=== PATIENT | male | born 1960 | race Caucasian/White ===

== ENCOUNTER 2022-05-24 17:44 | Emergency (ER) | payer SELFPAY ==
[2022-05-24] MEDS ORDERED: FUROSEMIDE 40 MG/4 ML VIAL IVP STA (18:07)
--- NOTE | 2022-05-24 18:08 | ED Physician Documentation ---
PD HPI DYSPNEA - Stated complaint Stated Complaint: SOA,SWOLLEN FEET - Chief complaint Chief Complaint: Cardiac - History obtained from History obtained from: Patient - Additional information Additional information: He was diagnosed with congestive heart failure in November. He was given prescriptions but has not been noncompliant. He has developed increasing pedal edema over the last couple of months and over the last couple of weeks has developed shortness of breath. He denies chest pain. He smokes but does not use drugs or alcohol. Review of Systems Constitutional: denies: Fatigue Cardiac: reports: Pedal edema. denies: Chest pain / pressure, Palpitations, Calf pain Respiratory: reports: Dyspnea. denies: Cough PD PAST MEDICAL HISTORY - Present Medications Home Medications: Ambulatory Orders Medication Instructions Recorded Confirmed Furosemide [Lasix] 20 mg PO DAILY #30 tablet 05/24/22 Lisinopril [Zestril] 10 mg PO DAILY #30 tablet 05/24/22 Potassium Chloride 10 meq PO DAILY #30 05/24/22 - Allergies Allergies/Adverse Reactions: Allergies Allergy/AdvReac Type Severity Reaction Status Date / Time acetaminophen [From Percocet] Allergy Rash Verified 05/24/22 17:57 oxycodone [From Percocet] Allergy Rash Verified 05/24/22 17:57 PD ED PE NORMAL - Vitals Vital signs reviewed: Yes - General General: Alert and oriented X 3, No acute distress - Cardiac Cardiac: RRR, No murmur - Respiratory Respiratory: No respiratory distress, Clear bilaterally - Abdomen Abdomen: Non tender - Extremities Extremities: Other (3+ pitting pedal edema, no cellulitis or asymmetry) - Neuro Neuro: Alert and oriented X 3, Normal speech Results - Vitals Vitals: Vital Signs - 24 hr 05/24/22 05/24/22 05/24/22 17:50 18:32 19:20 Temperature 36.8 C 36.8 C Heart Rate 105 H 97 88 Respiratory 18 19 18 Rate Blood Pressure 173/109 H 160/99 H O2 Saturation 97 97 97 Oxygen O2 Source Room air - EKG (time done) 1813 Rate: Rate (enter#) (98) Rhythm: NSR, LAE [place]: Normal Intervals: Prolonged QT (borderline) QRS: LVH Ischemia: Normal ST segments - Labs Labs: Laboratory Tests 05/24/22 05/24/22 05/24/22 18:13 18:13 18:13 WBC 7.6 RBC 4.70 Hgb 13.9 L Hct 41.6 L MCV 88.5 MCH 29.6 MCHC 33.4 RDW 13.6 Plt Count 259 MPV 10.9 Neut # (Auto) 4.8 Lymph # (Auto) 1.6 [place] # (Auto) 0.4 Eos # (Auto) 0.6 Baso # (Auto) 0.1 Absolute Nucleated RBC 0.00 Nucleated RBC % 0.0 Sodium 134 L Potassium 3.8 Chloride 100 L Carbon Dioxide 24 Anion Gap 10.0 BUN 13 Creatinine 1.3 H Estimated GFR (MDRD) 56 L Glucose 120 H Calcium 9.3 Total Bilirubin 1.2 H AST 27 ALT 33 Alkaline Phosphatase 63 B-Natriuretic Peptide 245 H Total Protein 7.6 Albumin 4.4 Globulin 3.2 Albumin/Globulin Ratio 1.4 Lipase 41 PD MEDICAL DECISION MAKING - ED course ED course: 62yo male with hx HCF presents with mild anasarca d/t non-compliance. Feeling better after IV Lasix here with good urine output and diagnostics showed minimally elevated BNP and clear chest x-ray. The importance of primary care follow-up and tobacco cessation as well as medica l compliance were stressed. Departure - Departure Disposition: 01 Home, Self Care Clinical Impression: Congestive heart failure Qualifiers: Heart failure type: unspecified Heart failure chronicity: acute on chronic Qualified Code(s): I50.9 - Heart failure, unspecified Condition: Good Record reviewed to determine appropriate education?: Yes Instructions: ED CHF General Follow-Up: Sunil Gongora MD [Provider Admit Priv/Credential] - Prescriptions: Furosemide [Lasix] 20 mg PO DAILY #30 tablet Potassium Chloride 10 meq PO DAILY #30 Lisinopril [Zestril] 10 mg PO DAILY #30 tablet Comments: On-call this week for primary care follow-ups is Dr. Gongora, his numbers on this form. Call his office tomorrow for an appointment. It is important to follow-up with your primary care physician, call tomorrow for the next available appointment. Return if worse. It is also important to be compliant with your medications and quit smoking cigarettes. Discharge Date/Time: 05/24/22 19:21
--- NOTE | 2022-05-24 18:28 | XRAY Report ---
PROCEDURE: Chest 1 View X-Ray INDICATIONS: Chest pain TECHNIQUE: One view of the chest was acquired. COMPARISON: None. FINDINGS: Surgical changes and devices: None. Lungs and pleura: No pleural effusions or pneumothorax. Mild interstitial prominence. Lungs are oth erwise clear. Mediastinum: Mediastinal contours appear normal. Heart size is normal. Bones and chest wall: No suspicious bony lesions. Overlying soft tissues appear unremarkable. IMPRESSION: No acute cardiopulmonary disease. Reviewed by: Jody Rooney MD on 05/24/2022 6:26 PM PDT Approved by: Jody Rooney MD on 05/24/2022 6:26 PM PDT Station ID: [id number]
[2022-05-24 18:31] LABS: BASOPHILS # (AUTO) 0.1 10^3/uL (0.0-0.1); BASOPHILS % (AUTO) 1.2 %; EOSINOPHILS # (AUTO) 0.6 10^3/uL (0.0-0.7); EOSINOPHILS % (AUTO) 8.4 %; HCT - HEMATOCRIT 41.6 % (42.0-52.0); HGB - HEMOGLOBIN 13.9 g/dL (14.0-18.0); LYMPHOCYTES # (AUTO) 1.6 10^3/uL (1.5-3.5); LYMPHOCYTES % (AUTO) 21.1 %; MEAN CORPUSCULAR HEMOGLOBIN 29.6 pg (27.0-31.0); MEAN CORPUSCULAR HGB CONC 33.4 g/dL (32.0-36.0); MEAN CORPUSCULAR VOLUME 88.5 fL (80.0-94.0); MEAN PLATELET VOLUME 10.9 fL (7.4-11.4); MONOCYTES # (AUTO) 0.4 10^3/uL (0.0-1.0); MONOCYTES % (AUTO) 5.4 %; NEUTROPHILS # (AUTO) 4.8 10^3/uL (1.5-6.6); NEUTROPHILS % (AUTO) 63.6 %; PLT - PLATELET COUNT 259 10^3/uL (130-450); RED CELL DISTRIBUTION WIDTH 13.6 % (12.0-15.0); WHITE BLOOD COUNT 7.6 x10^3/uL (4.8-10.8)
[2022-05-24 18:49] LABS: ALBUMIN 4.4 g/dL (3.2-5.5); ALBUMIN/GLOBULIN RATIO 1.4 (1.0-2.2); BILIRUBIN,TOTAL 1.2 mg/dL (0.2-1.0); CALCIUM 9.3 mg/dL (8.5-10.3); CREATININE 1.3 mg/dL (0.6-1.2); POTASSIUM 3.8 mmol/L (3.5-5.0); TOTAL PROTEIN 7.6 g/dL (6.7-8.2)
[2022-05-24] MEDS ORDERED: lisinopriL 5 MG TABLET PO STA (19:11)
[2022-05-24 19:21] VITALS: BP 160/99
== END 2022-05-24 19:21 | disposition home or self-care (01) ==
LOC: ED 17:44
DX: R60.1 Generalized edema (principal); I50.9 Heart failure, unspecified; Z91.14 Patient's other noncompliance with medication regimen; F17.200 Nicotine dependence, unspecified, uncomplicated
CPT/HCPCS: 36415; 71045; 80053; 83690; 83880; 85025; 93005; 96374; 99283; 99284; A9270; 84484

== ENCOUNTER 2022-10-02 08:00 | Outpatient (CLI) | payer SELFPAY ==
[2022-10-02 20:02] LABS: HCT - HEMATOCRIT 46.8 % (42.0-52.0); HGB - HEMOGLOBIN 16.4 g/dL (14.0-18.0); MEAN CORPUSCULAR VOLUME 85.7 fL (80.0-94.0); MEAN PLATELET VOLUME 12.4 fL (7.4-11.4); RED BLOOD COUNT 5.46 10^6/uL (4.70-6.10); RED CELL DISTRIBUTION WIDTH 13.3 % (12.0-15.0); WHITE BLOOD COUNT 7.3 x10^3/uL (4.8-10.8)
[2022-10-02 20:17] LABS: ALBUMIN 4.7 g/dL (3.2-5.5); ALBUMIN/GLOBULIN RATIO 1.5 (1.0-2.2); BILIRUBIN,TOTAL 0.8 mg/dL (0.2-1.0); CALCIUM 9.9 mg/dL (8.5-10.3); CREATININE 1.2 mg/dL (0.6-1.2); POTASSIUM 4.4 mmol/L (3.5-5.0); TOTAL PROTEIN 7.8 g/dL (6.7-8.2)
== END 2022-10-02 23:59 | disposition home or self-care (01) ==
LOC: LAB.N 08:00
PROVIDERS: ATTEND Physician Assistant
DX: I50.9 Heart failure, unspecified (principal)
CPT/HCPCS: 36415; 80053; 85025; 85027

== ENCOUNTER 2022-10-12 08:00 | Outpatient (CLI) | payer SELFPAY ==
[2022-10-13 11:56] LABS: ESTIMATED AVERAGE GLUCOSE 367 mg/dL (70-100); HEMOGLOBIN A1c% 14.4 % (4.27-6.07)
== END 2022-10-12 23:59 | disposition home or self-care (01) ==
LOC: LAB 08:00
PROVIDERS: ATTEND Physician Assistant
DX: E11.65 Type 2 diabetes mellitus with hyperglycemia (principal)
CPT/HCPCS: 36415; 83036

== ENCOUNTER 2022-11-17 08:00 | Outpatient (CLI) | payer SELFPAY ==
[2022-11-17 18:00] LABS: HCT - HEMATOCRIT 46.7 % (42.0-52.0); HGB - HEMOGLOBIN 15.4 g/dL (14.0-18.0); MEAN CORPUSCULAR HEMOGLOBIN 29.9 pg (27.0-31.0); MEAN CORPUSCULAR VOLUME 90.7 fL (80.0-94.0); MEAN PLATELET VOLUME 12.1 fL (7.4-11.4); RED BLOOD COUNT 5.15 10^6/uL (4.70-6.10); RED CELL DISTRIBUTION WIDTH 13.1 % (12.0-15.0); WHITE BLOOD COUNT 7.2 x10^3/uL (4.8-10.8)
[2022-11-17 18:09] LABS: CALCIUM 9.5 mg/dL (8.5-10.3); CREATININE 1.1 mg/dL (0.6-1.2); POTASSIUM 4.2 mmol/L (3.5-5.0)
== END 2022-11-17 23:59 | disposition home or self-care (01) ==
LOC: LAB.N 08:00
PROVIDERS: ATTEND Nurse Practitioner
DX: I50.9 Heart failure, unspecified (principal)
CPT/HCPCS: 36415; 80048; 83880; 85027

== ENCOUNTER 2022-11-20 14:38 | Outpatient (CLI) | payer SELFPAY ==
--- NOTE | 2022-11-20 17:38 | XRAY Report ---
PROCEDURE: Chest 2 View X-Ray INDICATIONS: HEART FAILURE TECHNIQUE: 2 views of the chest were acquired. COMPARISON: None. FINDINGS: Surgical changes and devices: None. Lungs and pleura: No pleural effusions or pneumothorax. Lungs are clear, yet hyperexpanded. Mediastinum: Mediastinal contours are normal. Heart size is normal. Bones and chest wall: No suspicious bony abnormalities. Age-appropriate degenerative changes are se en. Soft tissues appear unremarkable. IMPRESSION: The heart size is normal. No pulmonary edema. Reviewed by: Olman Krishnan MD on 11/20/2022 4:36 PM [facility] Approved by: Olman Krishnan MD on 11/20/2022 4:36 PM [facility] Station ID: [id number]
== END 2022-11-20 14:39 | disposition home or self-care (01) ==
LOC: DI.N 14:38
PROVIDERS: ATTEND Nurse Practitioner
DX: I50.9 Heart failure, unspecified (principal)

== ENCOUNTER 2023-02-07 15:02 | Outpatient (CLI) | payer MEDICAID | END 2023-02-07 15:03 | disposition home or self-care (01) | LOC: DI 15:02 | PROVIDERS: ATTEND Nurse Practitioner | DX: I50.9 Heart failure, unspecified (principal); I51.7 Cardiomegaly; I77.810 Thoracic aortic ectasia | CPT/HCPCS: 93306 ==